=== PATIENT | male | born 1955 | race Caucasian/White ===

== ENCOUNTER 2020-09-30 04:18 | Emergency (ER) | payer OTHER ==
[~2020-09-30] VITALS: Ht 172.7 cm; Wt 70.3 kg
--- NOTE | 2020-09-30 04:24 | NUR ---
Pt bibra c/o abd pain, n/v. Pt aaox4 breathing evenly and unlabored. 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 Pt attached to monitor and pox. MD at bedside for eval. Left wrist 20g initiated. Upon assessment, pt has worley cath. Pt given blanket and call light within reach
[2020-09-30] MEDS ORDERED: PANTOPRAZOLE 40 MG VIAL IV ONE (04:30)
--- NOTE | 2020-09-30 04:35 | NUR ---
blood obtained and sent to lab
[2020-09-30] MEDS ORDERED: PANTOPRAZOLE 40 MG VIAL ONE (04:36)
[2020-09-30] MEDS ORDERED: ONDANSETRON HCL/PF 4 MG/2 ML VIAL ONE (04:36)
[2020-09-30 04:42] LABS: BASOPHILS # (AUTO) 0.1 /CMM (0.0-0.2); BASOPHILS % (AUTO) 0.7 % (0.0-2.0); EOSINOPHILS % (AUTO) 0.3 % (0.0-6.0); HEMATOCRIT 50 % (39-51); HEMOGLOBIN 16.1 g/dL (13.5-17.5); LYMPHOCYTES # (AUTO) 1.4 /CMM (0.8-4.8); LYMPHOCYTES % (AUTO) 7.8 % (20.0-44.0); MEAN CORPUSCULAR HGB CONC 32 g/dl (31.0-36.0); MEAN CORPUSCULAR VOLUME 84 fL (80-96); MONOCYTES % (AUTO) 5.6 % (2.0-12.0); NEUTROPHILS # (AUTO) 14.9 /CMM (1.8-8.9); NEUTROPHILS % (AUTO) 85.6 % (43.0-81.0); PLATELET COUNT (AUTO) 367 /CMM (150-450); RED BLOOD CELL COUNT(AUTO) 5.95 MIL/uL (4.5-6.0); WHITE BLOOD COUNT (AUTO) 17.5 K/uL (4.3-11.0)
[2020-09-30 04:52] LABS: CALCIUM, SERUM 9.4 mg/dL (8.5-10.1); CARBON DIOXIDE 24 mmol/L (21-32); CHLORIDE 105 mmol/L (98-107); CREATININE 0.9 mg/dL (0.6-1.3); GLUCOSE 120 mg/dL (74-106); POTASSIUM 4.7 mmol/L (3.5-5.1); SODIUM SERUM 138 mmol/L (136-145); UREA NITROGEN, BLOOD 21 mg/dL (7-18)
[2020-09-30 04:58] LABS: ALANINE AMINOTRANSFERASE 22 U/L (12-78); ALBUMIN 4.2 g/dL (3.4-5.0); ALKALINE PHOSPHATASE 110 U/L (46-116); ASPARTATE AMINOTRANSFERASE 23 U/L (15-37); BILIRUBIN,DIRECT 0.1 mg/dL (0.0-0.2); BILIRUBIN,TOTAL 0.4 mg/dL (0.2-1.0); TOTAL PROTEIN, SERUM 8.4 g/dL (6.4-8.2)
[2020-09-30] MEDS ORDERED: ONDANSETRON HCL/PF - ER 4 MG/2 ML VIAL IV ONE (05:00)
[2020-09-30] MEDS ORDERED: IV NS 0.9% 250 ML IV ONE (05:14)
[2020-09-30] MEDS ORDERED: IOHEXOL-300 100 ML VIAL IV ONE (05:14)
[2020-09-30] MEDS ORDERED: CT SWABBABLE VALVE TRANS SET 1 EA INFUS.SET MC ONE (05:14)
--- NOTE | 2020-09-30 05:16 | NUR ---
BROUGHT TO CT
--- NOTE | 2020-09-30 05:26 | NUR ---
CLINICAL INFORMATION PROVIDED TO ADVERTISING INSERTER VIA TELEPHONE. WILL CALL BACK FOR MD TO
--- NOTE | 2020-09-30 05:56 | NUR ---
DR. EMERY SPEAKING WITH GIOVANA YEE MD, DR. PANDYA
--- NOTE | 2020-09-30 06:31 | NUR ---
FAX TO [facility] ; [phone] [facility] AUTH [id number]
--- NOTE | 2020-09-30 07:05 | NUR ---
gave report to SOLE Mcgrath for heidi
--- NOTE | 2020-09-30 07:35 | NUR ---
ASSESSED PT ON BED ASLEEP EASILY AROUSABLE, AAOX4, NOT IN RESPIRATORY DISTRESS, V/S STABLE, KEPT RESTED AND COMFORTABLE. WILL CONTINUE TO MONITOR. AWAITING TRANSFER INFO FROM [facility].
[2020-09-30 07:36] LABS: LIPASE 113 U/L (73-393)
--- NOTE | 2020-09-30 07:59 | NUR ---
Patient Tranfers to outside Facility [facility] Physician:Dr. Lore Cruz MD Location:room 601 number for report [phone]
--- NOTE | 2020-09-30 08:25 | NUR ---
CALLED GIOVANA YEE RN NOT AVAILABLE. WILL CALL BACK.
--- NOTE | 2020-09-30 08:33 | NUR ---
SET UP TRANSPORT WITH THE CALL [facility]. RESERVATION NUMBER IS [id number]. THEY WILL CALLBACK WITH ETA
--- NOTE | 2020-09-30 09:15 | NUR ---
REPORT GIVEN TO SOLE GONZALEZ OF [facility] FOR [facility].
[2020-09-30 11:52] VITALS: BP 128/73
--- NOTE | 2020-09-30 12:21 | NUR ---
ETA FOR [facility] IS 5 MIN.
--- NOTE | 2020-09-30 12:22 | NUR ---
WILL CANCEL [facility] ONCE [facility] ARRIVES
--- NOTE | 2020-09-30 13:07 | NUR ---
CANCELLED CALL [facility]
--- NOTE | 2020-09-30 14:24 | NUR ---
patient picked up by private ambulance in no distress, going to [facility].
== END 2020-09-30 14:24 | disposition short-term general hospital (02) ==
LOC: ER 04:22
DX: K92.2 Gastrointestinal hemorrhage, unspecified (principal); I10 Essential (primary) hypertension; K21.9 Gastro-esophageal reflux disease without esophagitis; K44.9 Diaphragmatic hernia without obstruction or gangrene; Z79.01 Long term (current) use of anticoagulants; Z86.718 Personal history of other venous thrombosis and embolism; Z87.11 Personal history of peptic ulcer disease; Z20.822 Contact with and (suspected) exposure to COVID-19
CPT/HCPCS: 36415; 71045; 74177; 80048; 80076; 83690; 84484; 85025; 85730; 86850; 87426; 93005; 96374; 96375; 99291; 99292; C9113; C9803 ×2; J2405; J7050; Q9967; U0003